=== PATIENT | female | born 1970 | race Hispanic/Latino ===

== ENCOUNTER 2020-11-11 00:01 | Inpatient (IN) | payer SELFPAY ==
--- OUTSIDE RECORDS SUMMARY | 2020-11-11 00:04 | XMS REPORT | Continuity of Care Document ---
:1970 Author Organization [facility] t Address [address] [place] [address] Dr. Barbosa [address] [place] [id number] Care Team Providers Name Role Phone Unavailable Unavailable Unavailable Problems This patient has no known problems. Allergies, Adverse Reactions, Alerts This patient has no known allergies or adverse reactions. Medications This patient has no known medications. Procedures This patient has no known procedures. Results This patient has no known results.
[2020-11-11] MEDS ORDERED: LIDOCAINE VISCOUS 2% SOLN 15 ML UDC ONE (01:03)
[2020-11-11] MEDS ORDERED: ONDANSETRON 4 MG/2 ML VIAL ONE ×3 (01:16→09:39)
[2020-11-11] MEDS ORDERED: FAMOTIDINE 20 MG/2 ML VIAL IV ONE (01:16)
[2020-11-11] MEDS ORDERED: NA CHLORIDE 0.9% 1,000 ML ONE (01:17)
[2020-11-11] MEDS ORDERED: METRONIDAZOLE 500mg IVPB 500 MG/100 ML BAG IV ONE ×2 (01:17→09:40)
[2020-11-11] MEDS ORDERED: CIPROFLOXACIN 400mg IV 400 MG/200 ML BAG IV ONE ×2 (01:17→09:40)
--- NOTE | 2020-11-11 01:35 | EDPHYS ---
Physician Documentation [facility] Name: Ayse Etienne Age: 50 yrs Sex: Female : 1970 Arrival Date: 11/11/2020 Time: 00:04 Bed 5 Private MD: ED Physician Jaime Walker HPI: 11/11 00:39 This 50 yrs old Female presents to ER via Ambulatory with complaints of nelly Abdominal Pain. 00:39 The patient presents with abdominal pain abdominal distention in the upper abdomen, in nelly the lower abdomen. Onset: The symptoms/episode began/occurred 2 day(s) ago. The symptoms do not radiate. Associated signs and symptoms: none. Modifying factors: The symptoms are alleviated by nothing, the symptoms are aggravated by. Historical: - Allergies: 00:28 Morphine; em - Home Meds: 00:28 None [Active]; em - PMHx: 00:28 None; em - PSHx: 00:28 Hysterectomy; Cholecystectomy; em - Immunization history:: Adult Immunizations not up to date. - Social history:: Smoking status: Patient denies any tobacco usage or history of. ROS: 00:43 Constitutional: Negative for fever, chills, and weight loss, Eyes: Negative for injury, nelly pain, redness, and discharge, ENT: Negative for injury, pain, and discharge, Neck: Negative for injury, pain, and swelling, Cardiovascular: Negative for chest pain, palpitations, and edema, Respiratory: Negative for shortness of breath, cough, wheezing, and pleuritic chest pain, Back: Negative for injury and pain, : Negative for injury, bleeding, discharge, and swelling, MS/Extremity: Negative for injury and deformity, Skin: Negative for injury, rash, and discoloration, Neuro: Negative for headache, weakness, numbness, tingling, and seizure, Psych: Negative for depression, anxiety, suicide ideation, homicidal ideation, and hallucinations, Allergy/Immunology: Negative for hives, rash, and allergies, Endocrine: Negative for neck swelling, polydipsia, polyuria, polyphagia, and marked weight changes, Hematologic/Lymphatic: Negative for swollen nodes, abnormal bleeding, and unusual bruising. 00:43 Abdomen/GI: Positive for abdominal pain, nausea, of the umbilical area, right upper quadrant, left upper quadrant, right lower quadrant and left lower quadrant. Exam: 00:43 Constitutional: This is a well developed, well nourished patient who is awake, alert, nelly and in no acute distress. Head/Face: Normocephalic, atraumatic. Eyes: Pupils equal round and reactive to light, extra-ocular motions intact. Lids and lashes normal. Conjunctiva and sclera are non-icteric and not injected. Cornea within normal limits. Periorbital areas with no swelling, redness, or edema. ENT: Nares patent. No nasal discharge, no septal abnormalities noted. Tympanic membranes are normal and external auditory canals are clear. Oropharynx with no redness, swelling, or masses, exudates, or evidence of obstruction, uvula midline. Mucous membranes moist. Neck: Trachea midline, no thyromegaly or masses palpated, and no cervical lymphadenopathy. Supple, full range of motion without nuchal rigidity, or vertebral point tenderness. No Meningismus. Chest/axilla: Normal chest wall appearance and motion. Nontender with no deformity. No lesions are appreciated. Cardiovascular: Regular rate and rhythm with a normal S1 and S2. No gallops, murmurs, or rubs. Normal PMI, no JVD. No pulse deficits. Respiratory: Lungs have equal breath sounds bilaterally, clear to auscultation and percussion. No rales, rhonchi or wheezes noted. No increased work of breathing, no retractions or nasal flaring. Back: No spinal tenderness. No costovertebral tenderness. Full range of motion. Female : Normal external genitalia. Skin: Warm, dry with normal turgor. Normal color with no rashes, no lesions, and no evidence of cellulitis. MS/ Extremity: Pulses equal, no cyanosis. Neurovascular intact. Full, normal range of motion. Neuro: Awake and alert, GCS 15, oriented to person, place, time, and situation. Cranial nerves II-XII grossly intact. Motor strength 5/5 in all extremities. Sensory grossly intact. Cerebellar exam normal. Normal gait. Psych: Awake, alert, with orientation to person, place and time. Behavior, mood, and affect are within normal limits. 00:43 Abdomen/GI: Inspection: abdomen appears normal, Bowel sounds: diminished, Palpation: mild abdominal tenderness, in the umbilical area, Liver: no appreciated palpable abnormalities, Hernia: not appreciated. 00:57 ECG was reviewed by the Attending Physician. [facility] Vital Signs: 00:23 BP 144 / 78; Pulse 78; Resp 18; Temp 98.7; Pulse Ox 100% on R/A; Weight 79.38 kg; em Height 5 ft. 1 in. (154.94 cm); Pain 8/10; 02:20 BP 153 / 77; Pulse 60; Resp 18; Pulse Ox 98% on R/A; ea 03:48 BP 121 / 77; Pulse 67; Resp 18; Pulse Ox 98% on R/A; ea 00:23 Body Mass Index 33.07 (79.38 kg, 154.94 cm) em MDM: 00:30 Patient medically screened. nelly 00:45 Differential diagnosis: appendicitis, bowel obstruction, cholecystitis, Cholelithiasis, nelly diverticulitis, non-specific abd pain, pancreatitis, Peptic Ulcer Disease, urinary tract infection. Data reviewed: vital signs, nurses notes, lab test result(s), EKG, radiologic studies, CT scan, plain films. Data interpreted: monitoring specialist: rate is 78 beats/min, rhythm is regular, Pulse oximetry: on room air is 100 %. Test interpretation: by ED physician or midlevel provider: ECG, plain radiologic studies. Counseling: I had a detailed discussion with the patient and/or guardian regarding: the historical points, exam findings, and any diagnostic results supporting the discharge/admit diagnosis, lab results, radiology results, the need for further work-up and treatment in the hospital. 11/11 00:34 Order name: Basic Metabolic Panel [facility] 11/11 00:34 Order name: CBC with Diff [facility] 11/11 00:34 Order name: LFT's [facility] 11/11 00:34 Order name: Magnesium; Complete Time: 02:00 [facility] 11/11 00:34 Order name: NT PRO-BNP; Complete Time: 02:00 [facility] 11/11 00:34 Order name: PT-INR [facility] 11/11 00:34 Order name: Troponin (emerg Dept Use Only); Complete Time: 02:00 [facility] 11/11 00:34 Order name: Lipase; Complete Time: 02:00 [facility] 11/11 00:34 Order name: Basic Metabolic Panel; Complete Time: 02:00 EDMS 11/11 00:34 Order name: CBC with Automated Diff EDMS 11/11 00:34 Order name: Liver (Hepatic) Function; Complete Time: 02:00 EDCO 11/11 01:52 Order name: COVID-19 : Document "Date of Symptom Onset" if Symptomatic. tt3 11/11 02:10 Order name: CORONAVIRUS [facility]CO 11/11 02:39 Order name: Manual Differential [facility]CO 11/11 00:34 Order name: XRAY Chest (1 view) [facility] 11/11 00:34 Order name: EKG; Complete Time: 00:35 [facility] 11/11 00:34 Order name: Cardiac monitoring; Complete Time: 01:44 [facility] 11/11 00:34 Order name: EKG - Nurse/Tech; Complete Time: 01:44 [facility] 11/11 00:37 Order name: Abdomen with Erect XRAY [facility] 11/11 03:48 Order name: SARS-COV-2 RT PCR [facility] 11/11 08:39 Order name: RAD [facility] 11/11 09:31 Order name: RAD MS 11/11 00:34 Order name: IV Saline Lock; Complete Time: 01:44 [facility] 11/11 00:34 Order name: Labs collected and sent; Complete Time: 01:44 [facility] 11/11 00:34 Order name: O2 Per Protocol; Complete Time: 01:44 [facility] 11/11 00:34 Order name: O2 Sat Monitoring; Complete Time: 01:44 [facility] 11/11 00:35 Order name: NG Tube: to low int suction; Complete Time: 01:02 [facility] EC:57 Rate is 69 beats/min. Rhythm is regular. QRS Kenly is Normal. MT interval is normal. QRS nelly interval is normal. QT interval is normal. No Q waves. T waves are Normal. No ST changes noted. Clinical impression: Normal ECG and No evidence of ischemia. Interpreted by me. Reviewed by me. Administered Medications: 01:10 Drug: NS 0.9% 1000 ml Route: IV; Rate: 1 bolus; Site: left antecubital; ea 01:15 Drug: Pepcid 20 mg Route: IVP; Site: right antecubital; ea 02:07 Follow up: Response: No adverse reaction ea 01:15 Drug: Zofran (Ondansetron) 4 mg Route: IVP; Site: left antecubital; ea 02:07 Follow up: Response: No adverse reaction ea 01:20 Drug: Flagyl 500 mg Volume: 100 ml; Route: IVPB; Rate: 200 ml/hr; Infused Over: 30 ea mins; Site: left antecubital; 03:05 Follow up: Response: No adverse reaction; IV Status: Completed infusion ea 01:50 Drug: Cipro 400 mg Volume: 200 ml; Route: IVPB; Infused Over: 60 mins; Site: left ea antecubital; 02:06 Drug: Zofran (Ondansetron) 4 mg Route: IVP; Site: left antecubital; ea 03:04 Follow up: Response: No adverse reaction ea 02:07 Drug: NS 0.9% 1000 ml Route: IV; Rate: 125 ml/hr; Site: left antecubital; ea 02:27 Drug: Phenergan 12.5 mg Route: IVP; Site: left antecubital; ea 03:04 Follow up: Response: No adverse reaction ea Disposition: 11/11/20 01:35 Hospitalization ordered by Rodney Quijano for Inpatient Admission. Preliminary diagnosis are Abdominal tenderness, Other intestinal obstruction - high grade small bowel. - Bed requested for Telemetry/MedSurg (Inpatient). - Status is Inpatient Admission. ss - Condition is Fair. - Problem is new. - Symptoms have improved. Signatures: Dispatcher [employer] Desiree Potts RN RN dw Anderson, Corey, MD MD cha Munoz, Edgar, RN RN em Smirch, Shelby, RN RN ss Antunez, Elena, RN RN ea Corrections: (The following items were deleted from the chart) 03:19 01:35 Hospitalization Ordered by Rodney Quijano MD for Inpatient Admission. Preliminary diagnosis is Abdominal tenderness; Other intestinal obstruction - high grade small bowel. Bed requested for Telemetry/MedSurg (Inpatient). Status is Inpatient Admission. Condition is Fair. Problem is new. Symptoms have improved. [facility] 11:54 03:19 11/11/2020 01:35 Hospitalization Ordered by Rodney Quijano MD for Inpatient dw Admission. Preliminary diagnosis is Abdominal tenderness; Other intestinal obstruction - high grade small bowel. Bed requested for [facility] ER HOLD. Status is Inpatient Admission. Condition is Fair. Problem is new. Symptoms have improved. 13:05 11:54 11/11/2020 01:35 Hospitalization Ordered by Rodney Quijano MD for Inpatient ss Admission. Preliminary diagnosis is Abdominal tenderness; Other intestinal obstruction - high grade small bowel. Bed requested for Telemetry/MedSurg (Inpatient). Status is Inpatient Admission. Condition is Fair. Problem is new. Symptoms have improved. dw
--- NOTE | 2020-11-11 01:35 | ER ---
Nurse's Notes [facility] Name: Ayse Etienne Age: 50 yrs Sex: Female : 1970 Arrival Date: 11/11/2020 Time: 00:04 Bed 5 Private MD: Diagnosis: Abdominal tenderness;Other intestinal obstruction-high grade small bowel Presentation: 11/11 00:23 Chief complaint: Patient states: went to [facility] today and was diagnosed with SBO, em was told that she would need to be transferred to [place] or somewhere far because they did not have any beds, pt signed AMA, reports they gave her IV medications, pain started today, denies fever. Coronavirus screen: Client denies travel out of the [place] in the last 14 days. Ebola Screen: Patient negative for fever greater than or equal to 101.5 degrees Fahrenheit, and additional compatible Ebola Virus Disease symptoms Patient denies exposure to infectious person. Patient denies travel to an Ebola-affected area in the 21 days before illness onset. No symptoms or risks identified at this time. Initial Sepsis Screen: Does the patient meet any 2 criteria? No. Patient's initial sepsis screen is negative. Does the patient have a suspected source of infection? No. Patient's initial sepsis screen is negative. Risk Assessment: Do you want to hurt yourself or someone else? Patient reports no desire to harm self or others. Onset of symptoms was November 11, 2020. 00:23 Method Of Arrival: Ambulatory em 00:23 Acuity: JAIRO 3 em Historical: - Allergies: 00:28 Morphine; em - Home Meds: 00:28 None [Active]; em - PMHx: 00:28 None; em - PSHx: 00:28 Hysterectomy; Cholecystectomy; em - Immunization history:: Adult Immunizations not up to date. - Social history:: Smoking status: Patient denies any tobacco usage or history of. Screenin:45 Abuse screen: Denies threats or abuse. Nutritional screening: No deficits noted. ea Tuberculosis screening: No symptoms or risk factors identified. Fall Risk IV access (20 points). Assessment: 01:15 General: Appears uncomfortable, Behavior is appropriate for age. Pain: Complains of ea pain in abdomen. Neuro: Level of Consciousness is awake, alert, obeys commands, Oriented to person, place, time. Cardiovascular: Patient's skin is warm and dry. Respiratory: Airway is patent Respiratory effort is even, unlabored, Respiratory pattern is regular, symmetrical. GI: Reports lower abdominal pain. Derm: Skin is pink, warm \T\ dry. 02:20 Reassessment: Patient and/or family updated on plan of care and expected duration. Pain ea level reassessed. Patient is alert, oriented x 3, equal unlabored respirations, skin warm/dry/pink. Awaiting on covid results. 03:47 Reassessment: Unable to tolerated NG tube, provider notified, verbal order to ea discontinue NG tube if pt unable to tolerate. Vital Signs: 00:23 BP 144 / 78; Pulse 78; Resp 18; Temp 98.7; Pulse Ox 100% on R/A; Weight 79.38 kg; em Height 5 ft. 1 in. (154.94 cm); Pain 8/10; 02:20 BP 153 / 77; Pulse 60; Resp 18; Pulse Ox 98% on R/A; ea 03:48 BP 121 / 77; Pulse 67; Resp 18; Pulse Ox 98% on R/A; ea 00:23 Body Mass Index 33.07 (79.38 kg, 154.94 cm) em ED Course: 00:04 Patient arrived in ED. am2 00:27 Triage completed. em 00:28 Arm band placed on. em 00:29 Jaime Walker MD is Attending Physician. nelly 00:35 Ganesh Melendez, RN is Primary Nurse. em 01:07 XRAY Chest (1 view) In Process Unspecified. EDMS 01:30 Patient has correct armband on for positive identification. Bed in low position. Call ea light in reach. Side rails up X2. stock trader on. Pulse ox on. NIBP on. 01:34 Rodney Quijano MD is Hospitalizing Provider. nelly 01:50 No provider procedures requiring assistance completed. ea 03:04 Patient admitted, IV remains in place. ea 09:15 Chey Kebede, RN is Primary Nurse. hb Administered Medications: 01:10 Drug: NS 0.9% 1000 ml Route: IV; Rate: 1 bolus; Site: left antecubital; ea 01:15 Drug: Pepcid 20 mg Route: IVP; Site: right antecubital; ea 02:07 Follow up: Response: No adverse reaction ea 01:15 Drug: Zofran (Ondansetron) 4 mg Route: IVP; Site: left antecubital; ea 02:07 Follow up: Response: No adverse reaction ea 01:20 Drug: Flagyl 500 mg Volume: 100 ml; Route: IVPB; Rate: 200 ml/hr; Infused Over: 30 ea mins; Site: left antecubital; 03:05 Follow up: Response: No adverse reaction; IV Status: Completed infusion ea 01:50 Drug: Cipro 400 mg Volume: 200 ml; Route: IVPB; Infused Over: 60 mins; Site: left ea antecubital; 02:06 Drug: Zofran (Ondansetron) 4 mg Route: IVP; Site: left antecubital; ea 03:04 Follow up: Response: No adverse reaction ea 02:07 Drug: NS 0.9% 1000 ml Route: IV; Rate: 125 ml/hr; Site: left antecubital; ea 02:27 Drug: Phenergan 12.5 mg Route: IVP; Site: left antecubital; ea 03:04 Follow up: Response: No adverse reaction ea Outcome: 01:35 Decision to Hospitalize by Provider. nelly 02:20 Instructed on the need for admit, Demonstrated understanding of instructions. ea 03:47 Admitted to ER Hold. Please see [facility] for further documentation. ea 03:47 Condition: stable 13:05 Patient left the ED. ss Signatures: Dispatcher [employer] Jaime Wallace MD MD cha Munoz, Edgar, RN RN em Smirch, Shelby, RN RN Chey Kebede RN RN Natacha Ramirez Elena, RN RN ea Fitzpatrick, Steven, RN RN sf Corrections: (The following items were deleted from the chart) 01:04 01:02 GI: sf sf
[2020-11-11 01:46] LABS: Absolute Lymphocytes (CBC) 1.1 K/uL (0.7-4.9); Basophils % 0.2 % (0-1.3); Lymphocytes % 9.5 % (15.3-44.8); MPV 9.2 fL (7.6-11.3); Protime INR 0.97; RBC Red Blood Cell Count 4.38 M/uL (3.86-4.86)
[2020-11-11 01:57] LABS: Sodium Level 141 mmol/L (136-145)
[2020-11-11 01:58] LABS: ALT/SGPT 31 U/L (12-78); AST/SGOT 16 U/L (15-37); Albumin 3.8 g/dL (3.4-5.0); Alkaline Phosphatase 153 U/L (45-117); BUN Blood Urea Nitrogen 10 mg/dL (7-18); Bicarbonate 25 mmol/L (21-32); Bilirubin Direct < 0.1 mg/dL (0-0.2); Bilirubin Total 0.3 mg/dL (0.2-1.0); Glucose Level 141 mg/dL (74-106); Lipase 50 U/L (73-393); Magnesium 2.3 mg/dL (1.8-2.4); NT PRO-BNP 42 pg/mL (<125); Protein, Total 7.7 g/dL (6.4-8.2); Troponin (Emerg Dept Use Only) < 0.02 ng/mL (0.0-0.045)
[2020-11-11] MEDS ORDERED: PROMETHAZINE INJ 25 MG/ML AMP ONE (02:25)
[2020-11-11 02:39] LABS: Blood Morphology Comment NOT SEEN (NOT SEEN); Platelet Estimate ADEQ
[2020-11-11 04:20] VITALS: BMI 33.2
[2020-11-11] MEDS ORDERED: ACETAMINOPHEN 500 MG TAB PO PRN (04:20)
[2020-11-11] MEDS ORDERED: ONDANSETRON 4 MG/2 ML VIAL IV PRN (04:20)
[2020-11-11] MEDS: D5 0.45 NS 1,000 ML IV SCH ×3 (04:20→20:20)
[2020-11-11] MEDS: MORPHINE 2 MG/ML SYR IV PRN ×2 (04:35→09:40)
[2020-11-11] MEDS ORDERED: MORPHINE 2 MG/ML SYR ONE ×2 (04:41→09:39)
[2020-11-11] MEDS ORDERED: D5 0.45 NS 1,000 ML IV ONE (04:42)
[2020-11-11] MEDS: METRONIDAZOLE 500mg IVPB 500 MG/100 ML BAG IV SCH ×3 (08:00→17:26)
--- NOTE | 2020-11-11 08:38 | RAD REPORT ---
EXAM DESCRIPTION: RAD - Chest Single View - 11/11/2020 1:02 am CLINICAL HISTORY: ABDOMINAL DISTENTION Chest pain. COMPARISON: CHEST SINGLE VIEW dated 11/24/2014 FINDINGS: Portable technique limits examination quality. The lungs are grossly clear. The heart is normal in size. No displaced fractures. IMPRESSION: No acute intrathoracic process suspected.
--- NOTE | 2020-11-11 08:38 | RAD REPORT ---
EXAM DESCRIPTION: RAD - Abdomen W Erect - 11/11/2020 2:02 am CLINICAL HISTORY: Abdominal distention;Abd pain Pain COMPARISON: No comparisons FINDINGS: Several dilated loops of bowel are present in the left abdomen which appear filled with st ool and fluid compatible with mechanical small bowel obstruction. Enteric tube is present with its ti p in the stomach. No pneumoperitoneum is seen. Cholecystectomy clips.
[2020-11-11] MEDS ORDERED: INFLUENZA VACCINE (for 3y+) 0.5 ML DOSE IMVAC ONE (09:00)
[2020-11-11] MEDS: FAMOTIDINE 20 MG/2 ML VIAL IV SCH ×2 (09:00→21:57)
[2020-11-11] MEDS: CIPROFLOXACIN 400mg IV 400 MG/200 ML BAG IV SCH ×2 (09:00→21:57)
--- NOTE | 2020-11-11 09:30 | RAD REPORT ---
EXAM DESCRIPTION: RAD - Abdomen W Decubitus - 11/11/2020 8:27 am CLINICAL HISTORY: sbo Pain COMPARISON: Abdomen W Erect dated 11/11/2020 FINDINGS: Decubitus projections of the abdomen are submitted. There is quite a great deal of stool s een in the colon with fluid-filled small bowel loops in the left abdomen present. No pneumoperitoneum is detected.
--- NOTE | 2020-11-11 12:16 | EKG ---
Test Date: 2020-11-11 Test Time: 00:45:19 Maintenance Department Manager: CURTIS MEASUREMENT RESULTS: Intervals: Rate: 69 VA: 152 QRSD: 86 QT: 408 QTc: 437 Olla: P: 33 VA: 152 QRS: 17 T: 18 INTERPRETIVE STATEMENTS: Normal sinus rhythm Normal ECG Compared to ECG 11/24/2014 22:32:30 No significant changes Electronically Signed On 11-11-20 12:15:13 MANAGER PROGRAMMING by Jeyson Palencia
[2020-11-11 13:12] VITALS: O2SAT 98
--- NOTE | 2020-11-11 14:09 | P.HP ---
Date of Service: 11/11/20 PC: This 50-year-old female presents emergency room with severe abdominal pain for diagnosis and treatment. HPC: Patient apparently is gone to another facility, where she had a workup for her abdominal pain. This pain GB having for last couple days, divides into very very severe and frequent. Causing intense type of crampy radiating across her abdomen. At that facility a CT scan was obtained. They recommended patient be transferred in [place] for surgical evaluation. The patient signed an AMA and came down to our emergency room. PMH: Negative PSHx: Previous hysterectomy SOC: No known allergies SYS REVIEW: No cough, wheeze, shortness of breath. No chest pain or palpitations. Denies any urinary complaints. States he has otherwise been pretty good health. O/E awake alert uncomfortable HEENT: Within normal limits Chest: Chest movement equal bilaterally ABD: Abdomen is soft, no masses are palpable. Has some mid abdominal and left- sided discomfort. LOCO: Intact DATA: Elevated white count. The view the CT scan with the radiologist. She does have a low-grade partial small-bowel obstruction. There is stool distally. I feel she may have some type partial obstruction in this area. IMPRESSION: Partial small-bowel obstruction PLAN: Patient will be admitted to the hospital for observation. Will give IV fluids. Will give urgent some clear liquids and some mineral oil. Hopefully this tissue was all spontaneously.
[2020-11-11] MEDS ORDERED: MORPHINE 4 MG/ML SYR IV PRN (16:26)
[2020-11-11] MEDS ORDERED: MINERAL OIL 30 ML UCUP PO ONE ×2 (17:00→23:00)
[2020-11-11] MEDS ORDERED: DIAZEPAM 5 MG TABLET PO ONE (21:00)
[2020-11-12] MEDS: METRONIDAZOLE 500mg IVPB 500 MG/100 ML BAG IV SCH ×3 (00:05→12:16)
[2020-11-12] MEDS: D5 0.45 NS 1,000 ML IV SCH (04:30)
[2020-11-12 05:48] LABS: Absolute Lymphocytes (CBC) 1.8 K/uL (0.7-4.9); Basophils % 0.7 % (0-1.3); Hematocrit 34.8 % (36.0-45.0); Lymphocytes % 32.9 % (15.3-44.8); MPV 9.4 fL (7.6-11.3); RBC Red Blood Cell Count 3.78 M/uL (3.86-4.86)
[2020-11-12 06:17] LABS: ALT/SGPT 26 U/L (12-78); AST/SGOT 21 U/L (15-37); Alkaline Phosphatase 117 U/L (45-117); BUN Blood Urea Nitrogen 6 mg/dL (7-18); Bicarbonate 25 mmol/L (21-32); Bilirubin Direct < 0.1 mg/dL (0-0.2); Bilirubin Total 0.3 mg/dL (0.2-1.0); Glucose Level 91 mg/dL (74-106); Lipase 48 U/L (73-393); Potassium 3.5 mmol/L (3.5-5.1); Protein, Total 6.1 g/dL (6.4-8.2); Sodium Level 145 mmol/L (136-145)
[2020-11-12] MEDS: CIPROFLOXACIN 400mg IV 400 MG/200 ML BAG IV SCH (08:57)
[2020-11-12] MEDS: FAMOTIDINE 20 MG/2 ML VIAL IV SCH (09:17)
[2020-11-12 14:23] VITALS: BP 114/62; TEMP 96.9
--- NOTE | 2020-11-12 15:32 | P.PN ---
Date of Service: 11/12/20 S: Patient feels well today, has been up ambulating, having bowel movements. Tolerating a diet. O: Vital signs are stable, clinically looks obviously much improved. Abdomen is soft, nontender, no longer distended or tympanic. A: Partial small-bowel obstruction appears to have resolved. It was located mainly in the small bowel area. P: Dc IV, discharge home. I will have her follow up with me next week in my office. We will Re recommend a screening colonoscopy at that time. Any questions or problems, go to the emergency room, or contact me.
--- NOTE | 2020-11-12 15:37 | P.DS ---
Admission Date: 11/11/20 Discharge Date: 11/12/20 Disposition: ROUTINE DISCHARGE Discharge Condition: GOOD Reason for Admission: Partial bowel obstruction Brief History of Present Illness: Patient presents emergency room after having seen in another facility. She refused to be transferred to [place], discharge herself, and came to this facility. Hospital Course: Patient been doing well. However the morning of her admission started developed severe cramping mid epigastric type pain. The pain was unrelenting in nature. She noticed her abdomen appear to be getting bigger. She was markedly uncomfortable and went to an outpatient ER for diagnosis and treatment. There is CT scan was done which suggested a partial small-bowel obstruction. The patient presents to our facility, was admitted, kept NPO, and was given IV fluids. We also followed with close clinical exam as well as some mineral oil. Today she is up ambulating, tolerating a diet, after having had numerous bowel movements. Her abdominal pain has resolved. She will be discharged today. I spoke to her and her daughter about ongoing Jeanne eccentric. She will see me next week and we can further discuss if required. Vital Signs/Physical Exam: Temp Pulse Resp BP Pulse Ox 96.9 F 58 16 114/62 96 11/12/20 12:00 11/12/20 12:00 11/12/20 12:00 11/12/20 12:00 11/12/20 12:00 Laboratory Data at Discharge: WBC 5.50 K/uL (4.3-10.9) D 11/12/20 05:08 Hgb 11.5 g/dL (12.0-15.0) L 11/12/20 05:08 Hct 34.8 % (36.0-45.0) L 11/12/20 05:08 Plt Count 154 K/uL (152-406) D 11/12/20 05:08 PT 11.5 SECONDS (9.5-12.5) 11/11/20 01:20 INR 0.97 11/11/20 01:20 Sodium 145 mmol/L (136-145) 11/12/20 05:08 Potassium 3.5 mmol/L (3.5-5.1) 11/12/20 05:08 BUN 6 mg/dL (7-18) L 11/12/20 05:08 Creatinine 0.50 mg/dL (0.55-1.3) L 11/12/20 05:08 Glucose 91 mg/dL (74-106) 11/12/20 05:08 Magnesium 2.3 mg/dL (1.8-2.4) 11/11/20 01:20 Total Bilirubin 0.3 mg/dL (0.2-1.0) 11/12/20 05:08 AST 21 U/L (15-37) 11/12/20 05:08 ALT 26 U/L (12-78) 11/12/20 05:08 Alkaline Phosphatase 117 U/L (45-117) 11/12/20 05:08 Lipase 48 U/L (73-393) L 11/12/20 05:08 Imagings Data: CT scan was reviewed with our radiologist at this facility. It was felt the patient had a partial small-bowel obstruction. Home Medications: NK [No Home Meds] 11/24/14 Diet: Regular Activity: Ad davida Followup: Rodney Quijano MD [ACTIVE - CAN ADMIT] -
== END 2020-11-12 16:16 | disposition home or self-care (01) | DRG 390 ==
LOC: ER 00:01 → ERHOLD 00:48 → 2ND 12:49
PROVIDERS: ADMIT Surgery; ATTEND Surgery
DX: K56.600 Partial intestinal obstruction, unspecified as to cause (principal); Z88.5 Allergy status to narcotic agent; Z90.49 Acquired absence of other specified parts of digestive tract; Z90.710 Acquired absence of both cervix and uterus; Z20.822 Contact with and (suspected) exposure to COVID-19
CPT/HCPCS: 36415; 71045; 74019; 74021; 80048; 80076; 83690; 83735; 83880; 84484; 85025; 85610; 93005; 99285; J0744; J2270; J2405; J2550; J7030; J7799; U0003